=== PATIENT | male | born 2000 | race Caucasian/White ===

== ENCOUNTER 2023-11-12 09:33 | Day surgery (SDC) | payer BC, OTHER ==
[2023-11-12 10:56] LABS: BASO % 0.4 % (0-2.0); EOS % 0.1 % (0-4.5); HEMATOCRIT 42.8 % (35.4-49); HEMOGLOBIN 15.2 GM/dL (11.7-16.9); LYMPH % 9.1 % (8-40); MCH 32.7 pg (25.7-33.7); MCHC 35.6 g/dl (32.0-35.9); MEAN CELL VOLUME 91.9 fl (80-96); MONO % 6.2 % (3.8-10.2); NEUT % 84.2 % (42.8-82.8); PLATELET COUNT 202 10^3/uL (134-434); RBC 4.66 M/mm3 (4.00-5.60); RDW 13.8 % (11.9-15.9)
[2023-11-12 11:04] LABS: PH,URINE 6.5 (5.0-8.0); URINE APPEARANCE CLEAR; URINE BILIRUBIN NEGATIVE (NEGATIVE); URINE COLOR ORANGE; URINE GLUCOSE (UA) NEGATIVE (NEGATIVE); URINE KETONE TRACE (NEGATIVE); URINE LEUK ESTERASE NEGATIVE (NEGATIVE); URINE NITRITE NEGATIVE (NEGATIVE); URINE PROTEIN TRACE (NEGATIVE)
[2023-11-12 11:21] LABS: POTASSIUM 4.1 mmol/L (3.5-5.1)
[2023-11-12 11:26] LABS: ALBUMIN 4.5 g/dl (3.4-5.0); BLOOD UREA NITROGEN 8.6 mg/dL (7-18); CALCIUM 9.3 mg/dL (8.5-10.1)
[2023-11-12 11:30] LABS: CREATININE 0.7 mg/dL (0.55-1.3)
[2023-11-12 11:31] LABS: BILIRUBIN,TOTAL 1.9 mg/dL (0.2-1); TOT PROT 8.1 g/dl (6.4-8.2)
[2023-11-12] MEDS ORDERED: methylPREDNISolone NA SUCC 125 MG/2 ML VIAL ONE (12:15)
[2023-11-12] MEDS: methylPREDNISolone NA SUCC 125 MG/2 ML VIAL IVPB ONE (12:22)
[2023-11-12] MEDS ORDERED: FAMOTIDINE 20 MG/50 ML IVPB 20 MG/50 ML MG IVPB ONE (12:45)
[2023-11-12] MEDS: FAMOTIDINE 20 MG/50 ML IVPB 20 MG/50 ML MG IVPB ONE (12:48)
[2023-11-12] MEDS ORDERED: ACETAMINOPHEN 1000 MG/100 ML BAG IVPB PRN ×2 (13:51→18:36)
[2023-11-12] MEDS ORDERED: LACTATED RINGERS SOLUTION 1,000 ML/1,000 ML INFUS.BAG IV SCH (14:00)
[2023-11-12] MEDS ORDERED: AMPICILLIN NA/SULBACTAM NA 3 GM in DEXTROSE 5%-WATER 100 ML IVPB SCH (14:30)
[2023-11-12] MEDS ORDERED: BUPIVACAINE HCL/PF 0.25% (2.5MG/ML) 10 ML VIAL ONE (16:50)
[2023-11-12] MEDS ORDERED: MIDAZOLAM HCL 2 MG/2 ML SINGLE DOSE VIAL ONE (17:16)
[2023-11-12] MEDS ORDERED: SUCCINYLCHOLINE CHLORIDE 200 MG/10 ML SYRINGE ONE (17:16)
[2023-11-12] MEDS ORDERED: HYDROmorphone HCl 2 MG/ML VIAL ONE (17:16)
[2023-11-12] MEDS ORDERED: PROPOFOL 40 ML ONE (17:16)
[2023-11-12] MEDS ORDERED: ROCURONIUM BROMIDE 50 MG/5 ML SYRINGE ONE (17:16)
[2023-11-12] MEDS ORDERED: ceFAZolin SODIUM 1 GM VIAL ONE (17:34)
[2023-11-12] MEDS: BUPIVACAINE HCL/PF 0.25% (2.5MG/ML) 10 ML VIAL IJ ONE (17:48)
[2023-11-12] MEDS ORDERED: NEOSTIGMINE METHYLSULFATE 0.5 MG/1 ML - 10 ML MDV ONE (17:51)
[2023-11-12] MEDS ORDERED: ePHEDrine SULFATE 50 MG/1 ML AMPULE ONE (18:01)
[2023-11-12] MEDS ORDERED: SUGAMMADEX SODIUM 200 MG/2 ML VIAL ONE ×2 (18:05→18:07)
[2023-11-12] MEDS: LACTATED RINGERS SOLUTION 1,000 ML/1,000 ML INFUS.BAG IV SCH (18:53)
[2023-11-12] MEDS: AMPICILLIN NA/SULBACTAM NA 3 GM in SODIUM CHLORIDE 100 ML IVPB SCH (19:21)
[2023-11-12] MEDS ORDERED: ONDANSETRON 4 MG/2 ML VIAL IVPUSH PRN (20:23)
[2023-11-13] MEDS: morphine SULFATE 4 MG/ML VIAL IVPUSH PRN (02:18)
[2023-11-13 03:45] VITALS: BMI 25.1
[2023-11-13 09:59] LABS: BASO % 0.1 % (0-2.0); HEMATOCRIT 37.5 % (35.4-49); HEMOGLOBIN 13.3 GM/dL (11.7-16.9); LYMPH % 6.9 % (8-40); MCH 32.3 pg (25.7-33.7); MCHC 35.3 g/dl (32.0-35.9); MEAN CELL VOLUME 91.5 fl (80-96); MEAN PLT VOLUME 10.7 fl (7.5-11.1); MONO % 6.3 % (3.8-10.2); NEUT % 86.7 % (42.8-82.8); PLATELET COUNT 196 10^3/uL (134-434); RDW 13.2 % (11.9-15.9); WHITE BLOOD COUNT 13.7 K/mm3 (4.0-10.0)
[2023-11-13 10:03] LABS: POTASSIUM 4.2 mmol/L (3.5-5.1)
[2023-11-13 10:06] LABS: BLOOD UREA NITROGEN 6.8 mg/dL (7-18); CALCIUM 8.9 mg/dL (8.5-10.1)
[2023-11-13 10:09] LABS: CREATININE 0.6 mg/dL (0.55-1.3)
[2023-11-13] MEDS: oxyCODONE HCL 5 MG TABLET PO PRN (11:03)
[2023-11-13] MEDS: ACETAMINOPHEN 325 MG TABLET (FP) PO SCH (11:05)
[2023-11-13 14:38] VITALS: BP 120/51; PULSE 71; RESP 18; TEMP 99.3
[2023-11-13] MEDS: ONDANSETRON 4 MG/2 ML VIAL IVPUSH PRN (15:44)
[2023-11-13] MEDS: PROCHLORPERAZINE MALEATE 5 MG TABLET PO ONE (16:15)
[2023-11-13] MEDS: ACETAMINOPHEN 1000 MG/100 ML BAG IVPB ONE (16:22)
== END 2023-11-13 18:17 | disposition home or self-care (01) ==
LOC: JER 09:33 → UNDOADMIN 14:10 → JERBED 14:10 → SUATTDRO 14:58 → JASUSAT 14:58 → J6S 20:21 → JASUSAT 11-13 18:17
PROVIDERS: ATTEND Internal Medicine
PROC: 0DTJ4ZZ Resection of Appendix, Percutaneous Endoscopic Approach (ICD-10-PCS; principal; 2023-11-12 19:30)
DX: K35.80 Unspecified acute appendicitis (principal)
CPT/HCPCS: 36415; 74177-TC; 80048; 80053; 81003; 85025; 88304-TC; 94760; 99285-25; J0131; Q9967